=== PATIENT | female | born 1960 | race Caucasian/White ===

== ENCOUNTER 2016-03-05 07:12 | Day surgery (SDC) | payer BC, MEDICAID ==
[~2016-03-05] VITALS: Ht 154.9 cm; Wt 72.0 kg
[2016-03-05] VITALS (16 sets, daily range): BP systolic 104–165; BP diastolic 48–70; PULSE 56–110; RESP 16–24; Ht 154.9 cm; Wt 72.0 kg
[2016-03-05] MEDS ORDERED: LEVO25TA59 PO (08:07)
[2016-03-05] MEDS ORDERED: [UNRECOGNIZED DRUG - OTHER] (08:08)
[2016-03-05] MEDS ORDERED: BUS5 PO (08:08)
[2016-03-05] MEDS ORDERED: METO25TA7 PO (08:08)
[2016-03-05] MEDS ORDERED: LIDOCAINE 1% (MPF) 10 ML INJ ONE (10:06)
[2016-03-05] MEDS ORDERED: LIDOCAINE 1% (MPF) 30 ML INJ ONE (10:08)
[2016-03-05] MEDS ORDERED: PROPOFOL 20 ML ONE (10:13)
[2016-03-05] MEDS ORDERED: LIDOCAINE 2% (SDV) 5 ML INJ ONE (10:13)
[2016-03-05] MEDS ORDERED: MIDAZOLAM 1 MG/ML 2 ML INJ ONE (10:13)
[2016-03-05] MEDS ORDERED: SUCCINYLCHOLINE CHLORIDE 100 MG/5 ML SYG IV ONE ×2 (10:13→10:34)
[2016-03-05] MEDS ORDERED: ONDANSETRON 4 MG INJ ONE (10:28)
[2016-03-05] MEDS ORDERED: DEXAMETHASONE 4 MG/ML 1 ML INJ ONE (10:28)
[2016-03-05] MEDS ORDERED: LABETALOL HCL 20MG INJ IV PRN (11:00)
[2016-03-05] MEDS ORDERED: hydrALAzine 20 MG INJ IV PRN (11:00)
[2016-03-05] MEDS ORDERED: EPHEDrine SULFATE 50 MG/5 ML SYG IV PRN (11:00)
[2016-03-05] MEDS ORDERED: OXYCODONE/ACETAMINOPHEN (5/325) TAB PO PRN (11:00)
[2016-03-05] MEDS ORDERED: MEPERIDINE 25 MG INJ IV PRN (11:00)
[2016-03-05] MEDS ORDERED: HYDROmorphONE (0.2 MG/ML) 10ML SYG IV PRN (11:00)
[2016-03-05] MEDS ORDERED: DIPHENHYDRAMINE 50 MG INJ IV PRN (11:00)
[2016-03-05] MEDS ORDERED: FENTAnyl 50 MCG/ML VIAL IV PRN (11:00)
[2016-03-05] MEDS ORDERED: PROCHLORPERAZINE 10 MG INJ IV PRN (11:00)
[2016-03-05] MEDS ORDERED: ONDANSETRON 4 MG INJ IV PRN (11:00)
[2016-03-05] MEDS ORDERED: EPHEDrine SULFATE 50 MG/5 ML SYG ONE (11:02)
--- NOTE | 2016-03-05 11:59 | RADRPT ---
PROCEDURE: XR Chest. CLINICAL INDICATION: Shortness of breath. Post bronchoscopy with biopsy. TECHNIQUE: Single frontal view. COMPARISON: None. FINDINGS: The right lung is clear. There is ill-defined density in the left mid lung zone measuring 5.6 cm in diameter. The lungs are otherwise clear. The heart size is normal. There is no pleural effusion. There is no pneumothorax. IMPRESSION: 1. Ill-defined density in the left mid lung zone measuring 5.6 cm. This may be due to a mass. Cor relation with CT scan advised. 2. No pneumothorax. 3. Otherwise normal chest radiograph. RPTAT: QQ .Esdras Nevarez MD, MD Date Time Electronically viewed and signed by .Esdras Nevarez MD, on 03/05/2016 11:59 .R/
--- NOTE | 2016-03-05 12:22 | SP ---
DATE OF PROCEDURE: PROCEDURE: Bronchoscopy with lavage and biopsies. INDICATION: History of aspergillosis-positive sputum and chronic cough. DESCRIPTION OF PROCEDURE: Patient was intubated and sedated, placed on mechanical ventilation, and sedation and paralysis were managed by anesthesia. Using a flexible fiberoptic bronchoscope, endotr acheal tube was entered. The anamaria was noted to be sharp in appearance. Left and right mainstem b ronchi were examined in detail. All orifices of left and right lungs were noted to be patent. Audrey ent had full orifices in the right upper lobe as opposed to the usual tree; otherwise, mucosa was no rmal. No endobronchial lesions noted. Left lung was then entered. Mucosa was noted to be slightly more edematous and boggy. Lavage was performed in the left lingula and transbronchial biopsies wer e also taken from the left lingula. Patient tolerated the procedure well without complication. Pos tprocedure chest x-ray has been requested. Samples to be sent for pathology, cytology, AFB stain an d culture, fungal stain and culture. Dictated By: GER LARRY/TARAN Conf#: [id number] DID#: [id number]
== END 2016-03-05 13:25 | disposition home or self-care (01) ==
LOC: SDS 07:12
PROVIDERS: ATTEND Internal Medicine Pulmonary Disease
DX: R05 Cough (principal); E03.9 Hypothyroidism, unspecified; I10 Essential (primary) hypertension; F41.9 Anxiety disorder, unspecified
CPT/HCPCS: 31622; 71010; 88104; 88305; J0330; J1100; J2250; J2405; Z7610; 84703